=== PATIENT | female | born 1990 | race American Indian/Alaskan Native ===

== ENCOUNTER 2019-05-07 03:17 | Emergency (ER) | payer OTHER ==
[2019-05-07 03:29] VITALS: BP 121/64
[2019-05-07] MEDS ORDERED: IBUPROFEN PO ONE (04:03)
[2019-05-07] MEDS ORDERED: NORCO 5/325 PO ONE (04:03)
[2019-05-07] MEDS ORDERED: FLEXERIL PO ONE (04:03)
--- NOTE | 2019-05-07 04:28 | Emergency Department Report ---
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 picking up a box at work complains of 410 low back pain radiating a right leg is recurring injury for this patient complains of pain in his 5/10 burning is no weakness no tingling or paralysis patient is ambulatory to baseline per patient there is no loss of decrease in bowel or bladder function pain is relieved by rest pain is exacerbated by completing work duties and loading boxes Complaint: back pain Onset/Timin -: days(s) Similar Symptoms Previously: Yes Place: work Radiation: right leg Severity: moderate Severity scale (0 -10): 5 Quality: burning Consistency: intermittent Improves With: other (rest ) Worsens With: movement, sitting upright, walking Context: while lifting, turning/twisting Associated Symptoms: denies other symptoms. denies: weakness, numbness, difficulty walking, incontinence, constipation - Related Data Previous Rx's Medication Instructions Recorded Last Taken Type Acetaminophen/Codeine [Tylenol #3] 1 tab PO Q6H PRN #25 tab 01/07/15 Unknown Rx Ibuprofen [Motrin] 600 mg PO Q8H PRN #40 tablet 01/07/15 Unknown Rx LORazepam [Ativan] 1 mg PO QHS #12 tab 01/07/15 Unknown Rx Cyclobenzaprine [Flexeril] 10 mg PO TID PRN #30 tablet 05/07/19 Unknown Rx Menthol/Camphor [[place] 1 applicatio TP QID PRN #1 tube 05/07/19 Unknown Rx Ointment] Naproxen [Naprosyn] 500 mg PO BID PRN #30 tablet 05/07/19 Unknown Rx predniSONE [Deltasone] 40 mg PO QDAY 5 Days #10 tab 05/07/19 Unknown Rx Allergies Allergy/AdvReac Type Severity Reaction Status Date / Time mushrooms Allergy Swelling Uncoded 01/06/15 20:55 ED Review of Systems ROS: Stated complaint: BACK PAIN Other details as noted in HPI Constitutional: denies: chills, fever Eyes: denies: eye pain, eye discharge, vision change ENT: denies: ear pain, throat pain Respiratory: denies: cough, shortness of breath, wheezing Cardiovascular: denies: chest pain, palpitations Endocrine: no symptoms reported Gastrointestinal: denies: abdominal pain, nausea, diarrhea Genitourinary: denies: urgency, dysuria, discharge Musculoskeletal: back pain, myalgia. denies: joint swelling, arthralgia Skin: denies: rash, lesions Neurological: denies: headache, weakness, paresthesias Psychiatric: as per HPI Hematological/Lymphatic: denies: easy bleeding, easy bruising ED Past Medical Hx - Past Medical History Previous Medical History?: No Additional medical history: family h/o HTN, hyperlipidemia - Surgical History Past Surgical History?: No - Social History Smoking Status: Never Smoker Substance Use Type: Alcohol - Medications Home Medications: Home Medications Medication Instructions Recorded Confirmed Last Taken Type Acetaminophen/Codeine [Tylenol #3] 1 tab PO Q6H PRN #25 tab 01/07/15 Unknown Rx Ibuprofen [Motrin] 600 mg PO Q8H PRN #40 tablet 01/07/15 Unknown Rx LORazepam [Ativan] 1 mg PO QHS #12 tab 01/07/15 Unknown Rx Cyclobenzaprine [Flexeril] 10 mg PO TID PRN #30 tablet 05/07/19 Unknown Rx Menthol/Camphor [[place] 1 applicatio TP QID PRN #1 tube 05/07/19 Unknown Rx Ointment] Naproxen [Naprosyn] 500 mg PO BID PRN #30 tablet 05/07/19 Unknown Rx predniSONE [Deltasone] 40 mg PO QDAY 5 Days #10 tab 05/07/19 Unknown Rx ED Physical Exam - General Limitations: No Limitations General appearance: alert, in no apparent distress - Head Head exam: Present: atraumatic, normocephalic - Eye Eye exam: Present: normal appearance, PERRL, EOMI Pupils: Present: normal accommodation - ENT ENT exam: Present: mucous membranes moist - Neck Neck exam: Present: normal inspection, full ROM. Absent: tenderness - Respiratory Respiratory exam: Present: normal lung sounds bilaterally. Absent: respiratory distress, wheezes, stridor, chest wall tenderness - Cardiovascular Cardiovascular Exam: Present: regular rate, normal rhythm, normal heart sounds. Absent: systolic murmur, diastolic murmur, rubs, gallop - GI/Abdominal GI/Abdominal exam: Present: soft, normal bowel sounds. Absent: distended, tenderness, guarding, bruit, hernia - Rectal Rectal exam: Present: deferred - Extremities Exam Extremities exam: Present: normal inspection, full ROM, normal capillary refill. Absent: tenderness, pedal edema, joint swelling - Back Exam Back exam: Present: normal inspection, full ROM, tenderness, muscle spasm, paraspinal tenderness. Absent: CVA tenderness (R), CVA tenderness (L), verteb ral tenderness (no posterior vertebral point tenderness rom intact pos straight leg right. ), rash noted - Expanded Back Exam Expanded Back exam: Absent: saddle anesthesia Back exam: Positive Straight Leg Raise: Right, Negative Straight Leg Raising: Left - Neurological Exam Neurological exam: Present: alert, oriented X3, CN II-XII intact, normal gait, reflexes normal. Absent: motor sensory deficit - Expanded Neurological Exam Expanded Patient oriented to: Present: person, place, time Speech: Present: fluid speech Cranial nerves: EOM's Intact: Normal, Gag Reflex: Normal, Tongue Deviation: Normal, Nystagmus: Normal, Facial Sensation: Normal Cerebellar function: Finger to Nose: Normal, Heel to Joyce: Normal Upper motor neuron: Jose Miguel Neglect: Normal, Pronator Drift: Normal, Babinski Sign: Normal, Sensory Extinction: Normal Motor strength exam: RUE: 5, LUE: 5, RLE: 5, LLE: 5 DTR: bicep (R): 2+, bicep (L): 2+, ankle (R): 2+, ankle (L): 2+ Best Eye Response (Juan): (4) open spontaneously Best Motor Response ([place]): (6) obeys commands Best Verbal Response (Juan): (5) oriented [place] Total: 15 - Psychiatric Psychiatric exam: Present: normal affect, normal mood - Skin Skin exam: Present: warm, dry, intact, normal color. Absent: rash ED Course Vital Signs 05/07/19 03:26 Temperature 97.4 F L Pulse Rate 63 Respiratory 18 Rate Blood Pressure 121/64 O2 Sat by Pulse 97 Oximetry ED Medical Decision Making - Medical Decision Making This is a low back strain pain improved with medications given in ED plan DC to home with prescription for NSAIDs muscle relaxants analgesic balm moist heat therapy patient will follow up with PCP in 2 days will report incident to work status patient DC'd to home in stable condition at this time ambulatory to base line patient with no acute distress Critical care attestation.: If time is entered above; I have spent that time in minutes in the direct care of this critically ill patient, excluding procedure time. ED Disposition Clinical Impression: Low back strain Qualifiers: Encounter type: initial encounter Qualified Code(s): S39.012A - Strain of muscle, fascia and tendon of lower back, initial encounter Disposition: DC- TO HOME OR SELFCARE Is pt being admited?: No Does the pt Need Aspirin: No Condition: Stable Instructions: Low Back Strain (ED), Core Strengthening Exercises (GEN) Prescriptions: predniSONE [Deltasone] 40 mg PO QDAY 5 Days #10 tab Cyclobenzaprine [Flexeril] 10 mg PO TID PRN #30 tablet PRN Reason: Muscle Spasm Naproxen [Naprosyn] 500 mg PO BID PRN #30 tablet PRN Reason: pain Menthol/Camphor [[place] Ointment] 1 applicatio TP QID PRN #1 tube PRN Reason: pain Referrals: RENÉE DE JESUS MD [Primary Care Provider] - 3-5 Days KAELYN VUONG MD [Staff Physician] - 3-5 Days Forms: Work/School Release Form(ED) Time of Disposition: 04:32
== END 2019-05-07 04:54 | disposition home or self-care (01) ==
LOC: ED 03:17
DX: S39.012A Strain of muscle, fascia and tendon of lower back, initial encounter (principal); Z91.018 Allergy to other foods; Z79.1 Long term (current) use of non-steroidal anti-inflammatories (NSAID); Z79.899 Other long term (current) drug therapy; X50.0XXA Overexertion from strenuous movement or load, initial encounter; Y93.89 Activity, other specified; Y92.69 Other specified industrial and construction area as the place of occurrence of the external cause; Y99.8 Other external cause status
CPT/HCPCS: 99282